=== PATIENT | female | born 1960 | race Caucasian/White ===

== ENCOUNTER → 2020-09-10 | Outpatient (CLI) | payer MEDICARE, BC ==
[~2020-09-10] MED LIST: ALEN70TA77 PO; BACL20TA PO; BUME1TAB21 PO; CALC-47 PO; CANA1TAB2 PO; DULO30CA2 PO; HYDR-1067 PO; INSU100I13 SQ; LANS30CA PO; MUTIVITAMIN PO; PRAV40TA2 PO; [UNRECOGNIZED DRUG - OTHER] PO; calcium; calcium citrate PO; gabapentin PO; iron PO; potassium citrate PO; tylenol PO; vitamin A PO; vitamin B12 PO; vitamin B6 PO; vitamin D3 PO
== END | disposition home or self-care (01) ==
LOC: ROC 07:40
PROVIDERS: ATTEND Radiology Radiation Oncology
DX: C50.412 Malignant neoplasm of upper-outer quadrant of left female breast (principal)
CPT/HCPCS: G0463

== ENCOUNTER 2020-09-12 15:03 | Outpatient (CLI) | payer MEDICARE, BC ==
[2020-09-13] MEDS ORDERED: ONDA4TAB7 PO (10:01)
[2020-09-13] MEDS ORDERED: HYDR-1067 PO (10:01)
== END 2020-09-12 23:59 | disposition home or self-care (01) ==
LOC: RAD 15:03
PROVIDERS: ATTEND Surgery
DX: C50.912 Malignant neoplasm of unspecified site of left female breast (principal)
CPT/HCPCS: 38792; A9541

== ENCOUNTER 2020-09-13 05:49 | Day surgery (SDC) | payer MEDICARE, BC ==
[2020-09-10 13:36] LABS: ALBUMIN 3.2 g/dL (3.4-5.0); ANION GAP 7 mmol/L (5-15); CHLORIDE 108 mmol/L (98-107)
[2020-09-10 13:40] LABS: ALANINE AMINOTRANSFERASE 42 U/L (12-78); ALKALINE PHOSPHATASE 112 U/L (45-117); BILIRUBIN,TOTAL 0.6 mg/dL (0.2-1.0); TOTAL PROTEIN 7.3 g/dL (6.4-8.2)
[~2020-09-13] VITALS: Ht 160 cm; Wt 133.5 kg
[2020-09-13] MEDS ORDERED: CHLORHEXIDINE 15 ML UDC ONE (06:43)
[2020-09-13] MEDS ORDERED: MIDAZOLAM 1 MG/ML, 2ML ONE (06:53)
[2020-09-13] MEDS ORDERED: FENTANYL PF 100 MCG/2ML ONE (06:53)
[2020-09-13] MEDS ORDERED: ISOSULFAN BLUE 10 MG/ML, 5ML IV ONE (06:54)
[2020-09-13] MEDS ORDERED: BUPIVACAINE/PF 0.5% ONE (06:54)
[2020-09-13] MEDS ORDERED: EPINEPHRINE 1 MG/ML, 1ML ONE (06:55)
[2020-09-13] MEDS ORDERED: LACTATED RINGERS 1,000 ML IV SCH (07:00)
[2020-09-13] MEDS ORDERED: CHLORHEXIDINE 15 ML UDC MM ONE (07:00)
[2020-09-13] MEDS ORDERED: SCOPOLAMINE 1MG PATCH TD ONE (07:13)
[2020-09-13] MEDS ORDERED: SCOPOLAMINE 1MG PATCH TD STA (07:14)
[2020-09-13] MEDS ORDERED: HYDROcodone/APAP 7.5-325MG/15ML UDC PO PRN (07:30)
[2020-09-13] MEDS ORDERED: MEPERIDINE/PF 25MG/0.5ML IVPush PRN (07:30)
[2020-09-13] MEDS ORDERED: OXYcodone 5 MG/5 ML ORAL.SOL UDC PO PRN (07:30)
[2020-09-13] MEDS ORDERED: FENTANYL PF 100 MCG/2ML IV PRN (07:30)
[2020-09-13] MEDS ORDERED: ONDANSETRON 2MG/ML, 2ML IVPush PRN (07:30)
[2020-09-13] MEDS ORDERED: PROMETHAZINE 25 MG/ML, 1ML IVPush PRN (07:30)
[2020-09-13] MEDS ORDERED: HYDROmorphone 1 MG/ML, 1ML INJ IVPush PRN (07:30)
[2020-09-13] MEDS ORDERED: ROCURONIUM 10 MG/ML,10ML ONE (07:42)
[2020-09-13] MEDS ORDERED: SUCCINYLCHOLINE 20 MG/ML, 10ML ONE (07:42)
[2020-09-13] MEDS ORDERED: PROPOFOL 10 MG/ML, 20ML ONE (10:00)
[2020-09-13] MEDS ORDERED: CEFAZOLIN 1,000 MG ONE (10:00)
[2020-09-13] MEDS ORDERED: ONDANSETRON 2MG/ML, 2ML ONE (10:00)
[2020-09-13] MEDS ORDERED: ONDA4TAB7 PO (10:01)
[2020-09-13] MEDS ORDERED: HYDR-1067 PO (10:01)
== END 2020-09-13 14:00 | disposition home or self-care (01) ==
LOC: OUT 05:49 → EDSTATUS 07:30 → OUT 14:00
PROVIDERS: ATTEND Surgery
DX: C50.412 Malignant neoplasm of upper-outer quadrant of left female breast (principal); E11.9 Type 2 diabetes mellitus without complications; I10 Essential (primary) hypertension; K21.9 Gastro-esophageal reflux disease without esophagitis; G47.33 Obstructive sleep apnea (adult) (pediatric); M81.0 Age-related osteoporosis without current pathological fracture; E66.01 Morbid (severe) obesity due to excess calories; E78.00 Pure hypercholesterolemia, unspecified; Z68.43 Body mass index [BMI] 50.0-59.9, adult; Z88.1 Allergy status to other antibiotic agents; Z88.8 Allergy status to other drugs, medicaments and biological substances; Z79.4 Long term (current) use of insulin; Z79.899 Other long term (current) drug therapy; Z90.49 Acquired absence of other specified parts of digestive tract; Z98.890 Other specified postprocedural states; Z88.2 Allergy status to sulfonamides; Z20.822 Contact with and (suspected) exposure to COVID-19
CPT/HCPCS: 19301; 36415; 38525; 38792; 76098; 80053; 82962; 88305; 88307; 88329; 88333; 93005; A9541; J0171; J0330; J0690; J2250; J2405; J2704; J3010; J7120; U0003

== ENCOUNTER 2020-10-01 07:12 | Outpatient (CLI) | payer MEDICARE, BC ==
[~2020-10-01 07:12] MED LIST changes: +ONDA4TAB7 PO
== END 2020-10-01 23:59 | disposition home or self-care (01) ==
LOC: ROC 07:12
PROVIDERS: ATTEND Radiology Radiation Oncology
DX: Z08 Encounter for follow-up examination after completed treatment for malignant neoplasm (principal); Z85.3 Personal history of malignant neoplasm of breast; M81.0 Age-related osteoporosis without current pathological fracture; I10 Essential (primary) hypertension; E78.00 Pure hypercholesterolemia, unspecified; E11.9 Type 2 diabetes mellitus without complications; K21.9 Gastro-esophageal reflux disease without esophagitis; E66.01 Morbid (severe) obesity due to excess calories; Z68.43 Body mass index [BMI] 50.0-59.9, adult; Z79.4 Long term (current) use of insulin; Z79.899 Other long term (current) drug therapy; Z98.890 Other specified postprocedural states
CPT/HCPCS: G0463

== ENCOUNTER 2020-10-15 07:58 | Outpatient (CLI) | payer MEDICARE, BC | END 2020-10-15 23:59 | disposition home or self-care (01) | LOC: ROC 07:58 | PROVIDERS: ATTEND Radiology Radiation Oncology | DX: C50.412 Malignant neoplasm of upper-outer quadrant of left female breast (principal); K21.9 Gastro-esophageal reflux disease without esophagitis; I10 Essential (primary) hypertension; E11.9 Type 2 diabetes mellitus without complications; M81.0 Age-related osteoporosis without current pathological fracture; E66.01 Morbid (severe) obesity due to excess calories; E78.00 Pure hypercholesterolemia, unspecified; Z17.0 Estrogen receptor positive status [ER+]; Z79.4 Long term (current) use of insulin; Z79.899 Other long term (current) drug therapy; Z68.43 Body mass index [BMI] 50.0-59.9, adult; Z90.49 Acquired absence of other specified parts of digestive tract | CPT/HCPCS: G0463 ==

== ENCOUNTER 2021-01-18 07:15 | Outpatient (CLI) | payer MEDICARE, BC ==
[~2021-01-18 07:15] MED LIST changes: -HYDR-1067 PO; +HYDR-2214 PO
== END 2021-01-18 23:59 | disposition home or self-care (01) ==
LOC: ROC 07:15
PROVIDERS: ATTEND Radiology Radiation Oncology
DX: C50.412 Malignant neoplasm of upper-outer quadrant of left female breast (principal); I89.0 Lymphedema, not elsewhere classified; Z17.0 Estrogen receptor positive status [ER+]
CPT/HCPCS: G0463

== ENCOUNTER → 2021-02-25 | Outpatient (CLI) | payer MEDICARE, BC | END | disposition home or self-care (01) | LOC: EDSTATUS 08:00 → RAD 08:00 | PROVIDERS: ATTEND Radiology Radiation Oncology | DX: Z51.0 Encounter for antineoplastic radiation therapy (principal); C50.412 Malignant neoplasm of upper-outer quadrant of left female breast; I89.0 Lymphedema, not elsewhere classified; Z17.0 Estrogen receptor positive status [ER+] | CPT/HCPCS: 77387; 77412 ==

== ENCOUNTER 2021-03-20 08:02 | Outpatient (CLI) | payer MEDICARE, BC | END 2021-03-20 23:59 | disposition home or self-care (01) | LOC: ROC 08:02 | PROVIDERS: ATTEND Radiology Radiation Oncology | DX: C50.412 Malignant neoplasm of upper-outer quadrant of left female breast (principal); Z17.0 Estrogen receptor positive status [ER+] | CPT/HCPCS: G0463 ==